=== PATIENT | male | born 1930 | race Caucasian/White ===

== ENCOUNTER 2017-02-28 13:06 | Emergency (ER) | payer MEDICARE ==
[~2017-02-28] VITALS: Ht 165.1 cm; Wt 77.1 kg
[2017-02-28] MEDS ORDERED: CLOP75TA2 PO (13:19)
[2017-02-28] MEDS ORDERED: ATOR1TAB18 PO (13:19)
[2017-02-28] MEDS ORDERED: OMEP40CA2 PO (13:19)
[2017-02-28] MEDS ORDERED: NITR2PA TD (13:19)
[2017-02-28] MEDS ORDERED: LEVE1INJ5 SQ (13:19)
[2017-02-28] MEDS ORDERED: AMLO10TA2 PO (13:19)
[2017-02-28] MEDS ORDERED: FURO40TA2 PO (13:19)
[2017-02-28] MEDS ORDERED: DULO1CAP2 PO (13:19)
[2017-02-28] MEDS ORDERED: NOVOINJ3 SQ (13:19)
[2017-02-28] MEDS ORDERED: RANE1000 PO (13:19)
[2017-02-28] MEDS ORDERED: VALS1TAB46 PO (13:19)
[2017-02-28 14:03] LABS: BASO % 0.6 % (0.0-1.0); EOS # 0.3 K/mm3 (0.0-0.50); EOS % 4.1 % (0.0-3.0); LARGE UNSTAINED CELL # 0.1 K/mm3 (0.0-0.4); LARGE UNSTAINED CELL % 1.6 % (0.0-4.0); LYMPH # 1.4 K/mm3 (1.5-4.5); LYMPH % 17.4 % (24.0-44.0); MEAN CORPUSCULAR HEMOGLOBIN 32.8 pg (27.0-33.0); MEAN CORPUSCULAR VOLUME 96.6 fl (80.0-96.0); MONO # 0.6 K/mm3 (0.0-0.8); MONO % 8.6 % (0.0-5.0); NEUTROPHILS # 4.8 K/mm3 (1.8-7.7); NEUTROPHILS % 67.6 % (36.0-66.0); PLATELET COUNT, AUTOMATED 229 k/mm3 (150-450); RED CELL DISTRIBUTION WIDTH 12.8 % (11.5-14.5); WHITE BLOOD COUNT 7.1 K/mm3 (4.0-10.0)
[2017-02-28 14:17] LABS: ANION GAP 8 MEQ/L (8-16); BLOOD UREA NITROGEN 35 MG/DL (7-18); CALCIUM LEVEL 8.1 MG/DL (8.8-10.2); CARBON DIOXIDE LEVEL 24 MEQ/L (21-32); CHLORIDE LEVEL 103 MEQ/L (98-107); CREATININE FOR GFR 2.19 MG/DL (0.70-1.30); GLOMERULAR FILTRATION RATE 30.5 (>35); GLUCOSE, FASTING 235 MG/DL (83-110); MAGNESIUM LEVEL 2.2 MG/DL (1.8-2.4); POTASSIUM SERUM 4.6 MEQ/L (3.5-5.1); SODIUM LEVEL 135 MEQ/L (136-145)
[2017-02-28 14:23] VITALS: BP 145/65
[2017-02-28 14:41] LABS: T UPTAKE 32 % (33-40); THYROXINE (T4) 6.5 UG/DL (4.5-12.0)
--- NOTE | 2017-02-28 14:43 | REP ---
RIGHT ELBOW: Four views of the right elbow are performed. There is no acute fracture or dislocation. Tiny olecranon spur is seen. I do not see a significant joint effusion. IMPRESSION: No evidence of acute fracture or dislocation. Signed by Nikita Arias MD 02/28/2017 04:48 P
--- NOTE | 2017-02-28 14:45 | REP ---
REASON: Chest pain. COMPARISON: 06/05/2016 There are mild fibrotic changes status quo. Note is again made of previous median sternotomy and cardiomegaly status quo. No acute patchy parenchymal opacities or pleural effusions have developed. There is no change in the osseous structures. IMPRESSION: Stable chronic changes as described above. Signed by Forest mSith DO 02/28/2017 02:58 P
--- NOTE | 2017-02-28 14:50 | ECGEPIP ---
Stationary ECG Study [facility] - ED Test Date: 2017-02-28 Pat Name: TORRES BURDEN Department: Room: - Gender: M Specialty Development Consultant: karina : 1930 Requested By: ELIESER HE Order Number: [id number] Reading MD: Jermaine Drake Measurements Intervals [place] Rate: 59 P: 22 IA: 257 QRS: -42 QRSD: 133 T: 43 QT: 476 QTc: 474 Interpretive Statements SINUS BRADYCARDIA WITH FIRST DEGREE AV BLOCK LEFT AXIS DEVIATION INTRAVENTRICULAR CONDUCTION DELAY MINIMAL VOLTAGE CRITERIA FOR LVH, CONSIDER NORMAL VARIANT NO PRIORS Electronically Signed On 02-28-2017 14:49:49 EDT by Jermaine Drake
== END 2017-02-28 15:26 | disposition home or self-care (01) ==
LOC: M ED 15:09
DX: R53.1 Weakness (principal); S50.311A Abrasion of right elbow, initial encounter; W01.0XXA Fall on same level from slipping, tripping and stumbling without subsequent striking against object, initial encounter; Y92.238 Other place in hospital as the place of occurrence of the external cause; Y93.89 Activity, other specified; Y99.8 Other external cause status; R94.31 Abnormal electrocardiogram [ECG] [EKG]; R29.6 Repeated falls; I25.10 Atherosclerotic heart disease of native coronary artery without angina pectoris; E11.9 Type 2 diabetes mellitus without complications; Z95.5 Presence of coronary angioplasty implant and graft; Z95.1 Presence of aortocoronary bypass graft; Z79.4 Long term (current) use of insulin; Z79.899 Other long term (current) drug therapy; Z79.02 Long term (current) use of antithrombotics/antiplatelets

== ENCOUNTER → 2017-03-09 | Outpatient (REF) | payer MEDICARE ==
[~2017-03-09] MED LIST: AMLO10TA2 PO; ATOR1TAB18 PO; CLOP75TA2 PO; DULO1CAP2 PO; FURO40TA2 PO; LEVE1INJ5 SQ; NITR2PA TD; NOVOINJ3 SQ; OMEP40CA2 PO; RANE1000 PO; VALS1TAB46 PO
== END ==
LOC: M SFHCPLAZ 11:12
PROVIDERS: ATTEND Internal Medicine
DX: E11.29 Type 2 diabetes mellitus with other diabetic kidney complication (principal)

== ENCOUNTER → 2017-03-10 | Outpatient (CLI) | payer MEDICARE | LOC: M LAB 08:57 | PROVIDERS: ATTEND Internal Medicine | DX: E11.29 Type 2 diabetes mellitus with other diabetic kidney complication (principal) ==

== ENCOUNTER → 2017-06-05 | Outpatient (REF) | payer MEDICARE ==
[~2017-06-05] MED LIST changes: -ATOR1TAB18 PO; +ATOR80TA59 PO; +BACI500O60 EX; +KEFL500C17 PO; +NITR0.4S14
[2017-06-05 11:25] LABS: MEAN CORPUSCULAR HEMOGLOBIN 32.2 pg (27.0-33.0); MEAN CORPUSCULAR HGB CONC 33.1 g/dl (32.0-36.5); MEAN CORPUSCULAR VOLUME 97.4 fl (80.0-96.0); RED CELL DISTRIBUTION WIDTH 13.3 % (11.5-14.5); WHITE BLOOD COUNT 7.5 K/mm3 (4.0-10.0)
[2017-06-05 11:42] LABS: ALBUMIN 3.5 GM/DL (3.2-5.2); ALBUMIN/GLOBULIN RATIO 0.97 (1.00-1.93); BILIRUBIN,TOTAL 0.5 MG/DL (0.2-1.0); CALCIUM LEVEL 8.8 MG/DL (8.8-10.2); CREATININE FOR GFR 2.45 MG/DL (0.70-1.30); GLOMERULAR FILTRATION RATE 26.8 (>35); MAGNESIUM LEVEL 2.4 MG/DL (1.8-2.4); POTASSIUM SERUM 4.1 MEQ/L (3.5-5.1); TOTAL PROTEIN 7.1 GM/DL (6.4-8.2)
== END ==
LOC: M SFHCPLAZ 09:25
PROVIDERS: ATTEND Internal Medicine
DX: I12.9 Hypertensive chronic kidney disease with stage 1 through stage 4 chronic kidney disease, or unspecified chronic kidney disease (principal); D63.1 Anemia in chronic kidney disease; E11.29 Type 2 diabetes mellitus with other diabetic kidney complication; E78.00 Pure hypercholesterolemia, unspecified; N18.3 Chronic kidney disease, stage 3 (moderate)

== ENCOUNTER → 2017-06-12 | Outpatient (REF) | payer MEDICARE ==
[2017-06-12 16:17] LABS: PERCENT SATURATION 24.1 % (19.7-50.0)
[2017-06-12 16:20] LABS: FOLATE 14.6 NG/ML
== END ==
LOC: M SFHCPLAZ 14:09
PROVIDERS: ATTEND Internal Medicine
DX: R94.6 Abnormal results of thyroid function studies (principal); R53.82 Chronic fatigue, unspecified; E11.29 Type 2 diabetes mellitus with other diabetic kidney complication; I12.9 Hypertensive chronic kidney disease with stage 1 through stage 4 chronic kidney disease, or unspecified chronic kidney disease; N18.3 Chronic kidney disease, stage 3 (moderate); Z79.82 Long term (current) use of aspirin; Z79.4 Long term (current) use of insulin; Z79.899 Other long term (current) drug therapy
CPT/HCPCS: 36415; 82607; 82728; 82746; 83550; 84443; G0463

== ENCOUNTER 2017-07-18 11:51 | Emergency (ER) | payer MEDICARE ==
[~2017-07-18] VITALS: Ht 165.1 cm; Wt 77.1 kg
[~2017-07-18 11:51] MED LIST changes: -BACI500O60 EX; -KEFL500C17 PO; -NITR0.4S14
[2017-07-18] MEDS ORDERED: NITR0.4S14 (12:02)
[2017-07-18] MEDS ORDERED: TETANUS/DIPHTHERIA TOX ADSORB ADULT 0.5ML SYR/VIAL (90714) IM ONE (12:30)
[2017-07-18 12:42] LABS: INR 0.87
[2017-07-18 13:26] LABS: BASO % 0.5 % (0.0-1.0); EOS # 0.3 K/mm3 (0.0-0.50); EOS % 4.2 % (0.0-3.0); LARGE UNSTAINED CELL # 0.2 K/mm3 (0.0-0.4); LARGE UNSTAINED CELL % 2.7 % (0.0-4.0); LYMPH # 1.1 K/mm3 (1.5-4.5); LYMPH % 16.3 % (24.0-44.0); MEAN CORPUSCULAR HEMOGLOBIN 34.4 pg (27.0-33.0); MEAN CORPUSCULAR HGB CONC 35.3 g/dl (32.0-36.5); MEAN CORPUSCULAR VOLUME 97.4 fl (80.0-96.0); MONO # 0.6 K/mm3 (0.0-0.8); MONO % 8.4 % (0.0-5.0); NEUTROPHILS # 4.6 K/mm3 (1.8-7.7); NEUTROPHILS % 67.7 % (36.0-66.0); PLATELET COUNT, AUTOMATED 250 k/mm3 (150-450); RED CELL DISTRIBUTION WIDTH 12.7 % (11.5-14.5); WHITE BLOOD COUNT 6.7 K/mm3 (4.0-10.0)
--- NOTE | 2017-07-18 13:26 | REP ---
Maxillofacial CT: Axial images are acquired helical scanning and a reformatted in sagittal and coronal projections. There is no nasal bone fracture. There is no orbital or sinus fracture. There is no mandible fracture. There is no mandible fracture. There are then multiple dental extractions. The paranasal sinuses are clear. The right mastoid air cells are clear. There is the inferior left mastoid air cells are poorly pneumatized. This is nonspecific and could be congenital variant or could be evidence for subacute or chronic mastoiditis change. There is evidence for bilateral high surgery. Impression: There is no facial bone fracture. There is bilateral ocular surgery. The inferior left mastoid air cells are incompletely pneumatized. This is nonspecific and could be a congenital variant or could be evidence of subacute or chronic mastoiditis. There are multiple dental extraction this. Signed by Nikita Grande MD 07/18/2017 01:07 P
--- NOTE | 2017-07-18 13:26 | REP ---
CT of the brain without IV contrast: There is no subdural or epidural hematoma. There is no other intracranial hemorrhage. There is no edema, mass effect or midline shift. The cortical stripe is unremarkable. The ventricles and sulci are enlarged compatible with diffuse volume loss. The visualized paranasal sinuses are unremarkable. The right mastoid air cells are unremarkable. There is non pneumatization of the inferior air cells in the left mastoid process. This is nonspecific and can be congenital variation or possibly from mastoiditis. There are no air-fluid levels. Impression: No subdural hematoma or other acute intracranial hemorrhage. There is diffuse volume loss. No mass effect or shift. Non pneumatization of the inferior air cells in the left mastoid process, congenital versus mastoiditis (old versus acute), there are no air-fluid levels. Signed by Nikita Grande MD 07/18/2017 12:53 P
[2017-07-18 14:21] LABS: ANION GAP 6 MEQ/L (8-16); AST/SGOT 17 U/L (15-37); BLOOD UREA NITROGEN 37 MG/DL (7-18); CALCIUM LEVEL 8.2 MG/DL (8.8-10.2); CARBON DIOXIDE LEVEL 24 MEQ/L (21-32); CHLORIDE LEVEL 103 MEQ/L (98-107); CREATININE FOR GFR 2.15 MG/DL (0.70-1.30); GLOMERULAR FILTRATION RATE 31.1 (>35); GLUCOSE, FASTING 232 MG/DL (83-110); POTASSIUM SERUM 4.2 MEQ/L (3.5-5.1); SODIUM LEVEL 133 MEQ/L (136-145)
[2017-07-18 14:22] LABS: ALBUMIN 3.6 GM/DL (3.2-5.2); ALBUMIN/GLOBULIN RATIO 0.88 (1.00-1.93); ALKALINE PHOSPHATASE 133 U/L (45-117); ALT/SGPT 23 U/L (12-78); BILIRUBIN,DIRECT 0.1 MG/DL (0.0-0.2); BILIRUBIN,TOTAL 0.5 MG/DL (0.2-1.0); TOTAL PROTEIN 7.7 GM/DL (6.4-8.2)
[2017-07-18] MEDS ORDERED: LIDOCAINE W/EPINEPHRINE 1% 20ML VIAL As Ordered ONE (15:36)
[2017-07-18] MEDS ORDERED: LIDOCAINE W/EPINEPHRINE 1% 20ML VIAL SC ONE (15:45)
[2017-07-18] MEDS ORDERED: CEPHALEXIN 500 MG CAP PO ONE (15:45)
[2017-07-18] MEDS ORDERED: BACITRACIN OINT 30GM TOP STA (16:59)
[2017-07-18] MEDS ORDERED: KEFL500C17 PO (17:04)
[2017-07-18] MEDS ORDERED: BACI500O60 EX (17:04)
[2017-07-18 17:09] VITALS: BP 147/58
--- NOTE | 2017-07-18 21:30 | CR ---
DATE OF CONSULTATION: 07/18/2017 REQUESTED BY : Dr. Twyla Mena CHIEF COMPLAINT: Nasal laceration. HISTORY OF PRESENT ILLNESS: This 86-year-old man tripped over the door threshold and hit his face at approximately 10 o'clock this morning. It resulted in laceration to the right upper nasal dorsum and left nasal tip area. Patient did not lose consciousness or sustain any other injury to the facial area. CT brain and CT head revealed no evidence of facial bone fracture. Due to the complex nature of the laceration, I have been consulted to assess the patient, and to provide repair of the laceration. PAST MEDICAL HISTORY: 1. Coronary artery disease. 2. Coronary artery bypass graft (CABG) 2001. 3. Cardiac stent placement 2014, 2006 and 2005. 4. Left knee replacement. 5. Right knee replacement. 6. Bilateral cataract extraction 2011. MEDICATIONS: - aspirin - Ranexa - Lasix - docusate sodium - Norvasc - Ativan - Cymbalta - NovoLog - Levemir - nitroglycerin - omeprazole - atorvastatin ALLERGIES: No known anaphylactic reactions to drugs. SOCIAL HISTORY: Nonsmoker. . REVIEW OF SYSTEMS: As above. Otherwise, noncontributory. PHYSICAL EXAMINATION: On examination, patient appears in no acute distress. VITAL SIGNS: Stable. Fresh blood and clots over the external nasal area. 1 cm laceration right upper nasal dorsum. Complex laceration of the left nasal tip with 3 mm mucosal involvement of the left nostril. The lower lateral cartilage intact. No exposed facial bone. Facial motion symmetrical and intact. No cervical lymphadenopathy. Trachea midline. CT sinus review: No facial bone fracture. IMPRESSION: This 86-year-old man sustained nasal lacerations times two due to a fall that occurred this morning. PLAN: Upon discussion with the patient, decision is made to have the nasal laceration repaired under local anesthetic control in the emergency department (ED). Arrangements have been made and we will have the nasal lacerations repaired in the ED today. CRISTIN
--- NOTE | 2017-07-19 07:15 | RO ---
DATE OF PROCEDURE: 07/18/2017 PREOPERATIVE DIAGNOSIS: Complex laceration left nasal tip and right upper nasal dorsum. POSTOPERATIVE DIAGNOSIS: Complex laceration left nasal tip and right upper nasal dorsum. PROCEDURE PERFORMED: 1. Repair of complex laceration of the left nasal tip, 3 cm 2. Repair of laceration of the right upper nasal dorsum, 1 cm. SURGEON: Maurice Campos MD VOCATIONAL NURSING INSTRUCTOR: ANESTHESIA: local CLINICAL PREAMBLE: This 86-year-old man tripped and fell early this morning resulting in a complex laceration to the external nose. He did not lose consciousness. CT of the brain and CT of facial sinuses reveal no evidence of intracranial pathology or facial fractures. Physical examination revealed 1 cm laceration over the right upper nasal dorsum and a complex 3 cm laceration involving the left nasal tip extending in the labial fold area. Upon discussion with the patient, he opt to have the laceration performed in the emergency department (ED). DESCRIPTION OF PROCEDURE: Patient was brought to the procedure room in the ED. He was prepped and draped in the usual fashion for the procedure. The edges of the left nasal tip laceration, measuring 3 cm, was infiltrated with 1% lidocaine with 1:100,000 epinephrine. The external nose skin laceration was carefully reapproximated along the left nasal tip area. There was no involvement of the lower lateral cartilage. The skin edges were then carefully reapproximated using a #5-0 Prolene suture. The right upper nasal dorsal laceration, which measured approximately 1 cm in size, was also reapproximated using #5-0 Prolene as well. The laceration sites were then covered with the bacitracin ointment. The patient tolerated the procedure well. No complication was encountered. At this time, patient will be accommodated for discharge from the ED with the provision of oral Keflex to be provided by the ED physician. He will followup with ENT office in 5-7 days for suture removal. He is to apply the bacitracin to the laceration sites as well as the left nostril as well. CRISTIN
--- NOTE | 2017-07-19 08:20 | ECGEPIP ---
Stationary ECG Study [facility] - ED Test Date: 2017-07-18 Pat Name: TORRES BURDEN Department: Room: - Gender: M Advertising Manager: kathleen : 1930 Requested By: ELIESER HE Order Number: [id number] Reading MD: Sunshine Robertson Measurements Intervals [place] Rate: 61 P: 29 ID: 244 QRS: -40 QRSD: 154 T: 68 QT: 479 QTc: 483 Interpretive Statements SINUS RHYTHM WITH FIRST DEGREE AV BLOCK MARKED LEFT AXIS DEVIATION LEFT BUNDLE BRANCH BLOCK SIMILAR 02/28/17 Electronically Signed On 07-19-2017 8:20:09 EDT by Sunshine Robertson
== END 2017-07-18 17:20 | disposition home or self-care (01) ==
LOC: EDBD 11:51 → M ED 11:51
DX: S01.21XA Laceration without foreign body of nose, initial encounter (principal); W01.198A Fall on same level from slipping, tripping and stumbling with subsequent striking against other object, initial encounter; Y92.019 Unspecified place in single-family (private) house as the place of occurrence of the external cause; Y93.01 Activity, walking, marching and hiking; Y99.8 Other external cause status; I25.10 Atherosclerotic heart disease of native coronary artery without angina pectoris; E11.9 Type 2 diabetes mellitus without complications; Z79.82 Long term (current) use of aspirin; Z79.899 Other long term (current) drug therapy; Z79.4 Long term (current) use of insulin; Z95.5 Presence of coronary angioplasty implant and graft; Z96.9 Presence of functional implant, unspecified

== ENCOUNTER → 2017-09-19 | Outpatient (REF) | payer MEDICARE ==
[~2017-09-19] MED LIST changes: +BACI500O60 EX; +KEFL500C17 PO; +NITR0.4S14
[2017-09-19 13:03] LABS: BASO % 0.1 % (0.0-1.0); EOS # 0.1 10^3/uL (0.0-0.50); EOS % 0.7 % (0.0-3.0); IMMATURE GRANULOCYTE % 0.5 % (0-0); LYMPH # 0.9 10^3/uL (1.5-4.5); LYMPH % 6.2 % (24.0-44.0); MEAN CORPUSCULAR HEMOGLOBIN 32.7 pg (27.0-33.0); MEAN CORPUSCULAR HGB CONC 33.4 g/dl (32.0-36.5); MEAN CORPUSCULAR VOLUME 97.6 fl (80.0-96.0); MONO # 1.2 10^3/uL (0.0-0.8); NEUTROPHILS # 12.7 10^3/uL (1.8-7.7); NEUTROPHILS % 84.5 % (36.0-66.0); PLATELET COUNT, AUTOMATED 252 10^3/uL (150-450); RED CELL DISTRIBUTION WIDTH 13.4 % (11.5-14.5); WHITE BLOOD COUNT 15.1 10^3/uL (4.0-10.0)
[2017-09-19 13:44] LABS: ALBUMIN 3.2 GM/DL (3.2-5.2); ALBUMIN/GLOBULIN RATIO 0.84 (1.00-1.93); BILIRUBIN,TOTAL 0.6 MG/DL (0.2-1.0); CALCIUM LEVEL 8.5 MG/DL (8.8-10.2); CREATININE FOR GFR 2.46 MG/DL (0.70-1.30); GLOMERULAR FILTRATION RATE 26.6 (>35); POTASSIUM SERUM 4.1 MEQ/L (3.5-5.1)
== END ==
LOC: M SFHCPLAZ 10:53
PROVIDERS: ATTEND Nurse Practitioner Family
DX: I25.810 Atherosclerosis of coronary artery bypass graft(s) without angina pectoris (principal); R05 Cough

== ENCOUNTER 2017-09-30 18:15 | Emergency (ER) | payer MEDICARE ==
[~2017-09-30] VITALS: Ht 172.7 cm; Wt 77.3 kg
[2017-09-30] MEDS ORDERED: NS 1,000 ML IV SCH (18:28)
[2017-09-30] MEDS ORDERED: ISOS30TA4 PO (18:53)
[2017-09-30] MEDS ORDERED: ECOT81TA5 PO (18:53)
[2017-09-30 19:41] LABS: ANION GAP 7 MEQ/L (8-16); BLOOD UREA NITROGEN 44 MG/DL (7-18); CALCIUM LEVEL 8.6 MG/DL (8.8-10.2); CARBON DIOXIDE LEVEL 27 MEQ/L (21-32); CHLORIDE LEVEL 101 MEQ/L (98-107); CREATININE FOR GFR 2.22 MG/DL (0.70-1.30); GLUCOSE, FASTING 287 MG/DL (83-110); SODIUM LEVEL 135 MEQ/L (136-145)
[2017-09-30 19:57] LABS: POTASSIUM SERUM 5.2 MEQ/L (3.5-5.1)
[2017-09-30 20:04] LABS: BASO % 0.5 % (0.0-1.0); EOS # 0.4 10^3/uL (0.0-0.50); EOS % 4.4 % (0.0-3.0); IMMATURE GRANULOCYTE % 0.3 % (0-0); LYMPH # 1.1 10^3/uL (1.5-4.5); LYMPH % 12.3 % (24.0-44.0); MEAN CORPUSCULAR HEMOGLOBIN 31.3 pg (27.0-33.0); MEAN CORPUSCULAR HGB CONC 33.2 g/dl (32.0-36.5); MEAN CORPUSCULAR VOLUME 94.3 fl (80.0-96.0); MONO # 0.7 10^3/uL (0.0-0.8); MONO % 8.2 % (0.0-5.0); NEUTROPHILS # 6.4 10^3/uL (1.8-7.7); NEUTROPHILS % 74.3 % (36.0-66.0); PLATELET COUNT, AUTOMATED 335 10^3/uL (150-450); RED CELL DISTRIBUTION WIDTH 13.2 % (11.5-14.5); WHITE BLOOD COUNT 8.6 10^3/uL (4.0-10.0)
[2017-09-30 20:27] LABS: INR 1.02
[2017-09-30] MEDS ORDERED: ISOSORBIDE MON. (IMDUR) 60 MG XR TAB PO ONE (20:45)
[2017-09-30 21:17] VITALS: BP 153/82
[2017-09-30 23:58] VITALS: BP 172/75
--- NOTE | 2017-10-01 06:26 | REP ---
PORTABLE CHEST, ONE VIEW: HISTORY: Chest pain. COMPARISON: 02/28/2017. An increase in interstitial markings is present in the lungs consistent with chronic interstitial change. The cardiac silhouette is enlarged. The pulmonary vasculature is normal in appearance Impression1. Chronic interstitial change.2. Cardiomegaly. Signed by Red Suazo MD 10/01/2017 08:25 A
--- NOTE | 2017-10-01 09:27 | ECGEPIP ---
Stationary ECG Study [facility] - ED Test Date: 2017-09-30 Pat Name: TORRES BURDEN Department: Room: - Gender: M Finance And Administration Manager: HAROON : 1930 Requested By: DIALLO VEGAS Order Number: [id number] Reading MD: Jermaine Drake Measurements Intervals [place] Rate: 66 P: 30 PA: 236 QRS: -40 QRSD: 145 T: 51 QT: 462 QTc: 486 Interpretive Statements SINUS RHYTHM WITH FIRST DEGREE AV BLOCK LEFT AXIS DEVIATION LEFT BUNDLE BRANCH BLOCK SIMILAR TO 07/18/17 Electronically Signed On 10-01-2017 9:27:05 EST by Jermaine Drake
--- NOTE | 2017-10-01 09:33 | ECGEPIP ---
Stationary ECG Study [facility] - ED Test Date: 2017-09-30 Pat Name: TORRES BURDEN Department: Room: - Gender: M Drainman: PiersonB: 1930 Requested By: DIALLO VEGAS Order Number: [id number] Reading MD: Jermaine Drake Measurements Intervals [place] Rate: 65 P: 22 SD: 251 QRS: -38 QRSD: 141 T: 62 QT: 455 QTc: 476 Interpretive Statements SINUS RHYTHM WITH FIRST DEGREE AV BLOCK LEFT AXIS DEVIATION LEFT BUNDLE BRANCH BLOCK SIMILAR TO PRIOR ON SAME DATE Electronically Signed On 10-01-2017 9:32:51 EST by Jermaine Drake
== END 2017-10-01 00:36 | disposition home or self-care (01) ==
LOC: M ED 18:15 → EDBD 18:15 → M ED 10-01 00:36
DX: I20.0 Unstable angina (principal); I10 Essential (primary) hypertension; E11.9 Type 2 diabetes mellitus without complications; E78.5 Hyperlipidemia, unspecified; Z79.4 Long term (current) use of insulin; Z79.899 Other long term (current) drug therapy; Z79.82 Long term (current) use of aspirin; Z95.1 Presence of aortocoronary bypass graft; Z98.61 Coronary angioplasty status; Z98.890 Other specified postprocedural states; Z82.49 Family history of ischemic heart disease and other diseases of the circulatory system

== ENCOUNTER → 2017-10-19 | Outpatient (CLI) | payer MEDICARE | LOC: M PAIN 14:30 | DX: G89.29 Other chronic pain (principal); M51.26 Other intervertebral disc displacement, lumbar region; E11.9 Type 2 diabetes mellitus without complications; I25.810 Atherosclerosis of coronary artery bypass graft(s) without angina pectoris; M19.90 Unspecified osteoarthritis, unspecified site; Z88.8 Allergy status to other drugs, medicaments and biological substances; Z79.82 Long term (current) use of aspirin; Z79.4 Long term (current) use of insulin; Z79.899 Other long term (current) drug therapy; Z91.81 History of falling; Z86.79 Personal history of other diseases of the circulatory system | CPT/HCPCS: G0463 ==

== ENCOUNTER 2017-11-03 14:08 | Inpatient (IN) | payer MEDICARE ==
[2017-11-03 15:22] LABS: BASO % 0.6 % (0.0-1.0); EOS # 0.4 10^3/uL (0.0-0.50); EOS % 5.1 % (0.0-3.0); HEMATOCRIT 33.3 % (42.0-52.0); IMMATURE GRANULOCYTE % 0.4 % (0-0); LYMPH # 1.2 10^3/uL (1.5-4.5); MEAN CORPUSCULAR HEMOGLOBIN 31.3 pg (27.0-33.0); MEAN CORPUSCULAR VOLUME 94.6 fl (80.0-96.0); MONO # 0.8 10^3/uL (0.0-0.8); NEUTROPHILS # 4.8 10^3/uL (1.8-7.7); NEUTROPHILS % 66.9 % (36.0-66.0); PLATELET COUNT, AUTOMATED 239 10^3/uL (150-450); RED BLOOD COUNT 3.52 10^6/uL (4.30-6.10); RED CELL DISTRIBUTION WIDTH 14.7 % (11.5-14.5); WHITE BLOOD COUNT 7.2 10^3/uL (4.0-10.0)
[2017-11-03 15:35] LABS: INR 0.97
[2017-11-03 15:50] LABS: ALBUMIN 3.5 GM/DL (3.2-5.2); ALBUMIN/GLOBULIN RATIO 0.88 (1.00-1.93); ALKALINE PHOSPHATASE 118 U/L (45-117); ALT/SGPT 23 U/L (12-78); ANION GAP 9 MEQ/L (8-16); AST/SGOT 25 U/L (7-37); BILIRUBIN,DIRECT 0.1 MG/DL (0.0-0.2); BILIRUBIN,TOTAL 0.5 MG/DL (0.2-1.0); BLOOD UREA NITROGEN 43 MG/DL (7-18); CARBON DIOXIDE LEVEL 23 MEQ/L (21-32); CHLORIDE LEVEL 104 MEQ/L (98-107); CPK CREATINE PHOSPHOKINASE 127 U/L (39-308); CREATININE FOR GFR 2.53 MG/DL (0.70-1.30); FREE T4 0.73 NG/DL (0.76-1.46); GLOMERULAR FILTRATION RATE 25.8 (>35); GLUCOSE, FASTING 213 MG/DL (83-110); POTASSIUM SERUM 5.1 MEQ/L (3.5-5.1); SODIUM LEVEL 136 MEQ/L (136-145); TOTAL PROTEIN 7.5 GM/DL (6.4-8.2); TROPONIN I < 0.02 NG/ML (< 0.10)
[2017-11-03 15:55] LABS: CK-MB VALUE MASS 2.3 NG/ML (0.0-3.6); MB/CK RELATIVE INDEX 1.81 (< OR =4); NT-PRO BNP 1807 PG/ML (<450)
[2017-11-03] MEDS ORDERED: GLUCOSE 4 GM CHEW TABLET PO (18:30)
[2017-11-03] MEDS ORDERED: GLUCAGON FOR INJ 1 MG VIAL (J1610) SC (18:30)
[2017-11-03] MEDS ORDERED: DEXTROSE 50% 50 ML SYRINGE IV (18:30)
[2017-11-03] MEDS: NS 1,000 ML IV (19:07)
[2017-11-03 19:43] LABS: CPK CREATINE PHOSPHOKINASE 97 U/L (39-308); TROPONIN I < 0.02 NG/ML (< 0.10)
[2017-11-03 19:44] LABS: CK-MB VALUE MASS 1.9 NG/ML (0.0-3.6); MB/CK RELATIVE INDEX 1.95 (< OR =4)
[2017-11-03 20:37] LABS: BEDSIDE GLUCOSE 252 MG/DL (83-110)
[2017-11-03] MEDS ORDERED: FERROUS SULFATE 325MG TAB PO (21:00)
[2017-11-03] MEDS ORDERED: SENOKOT S TAB PO (21:00)
[2017-11-03] MEDS: ATORVASTATIN 20 MG TAB PO (21:05)
[2017-11-03] MEDS: HEPARIN SOD (PORCINE) 5000 UNITS/ML VIAL SC (21:06)
[2017-11-03] MEDS: SENOKOT S TAB PO (21:06)
[2017-11-03] MEDS: HumaLOG INSULIN (NovoLOG) PER UNIT SC (21:06)
[2017-11-03] MEDS: METOPROLOL SUCC *XL* 25MG TAB (TopROL *XL*) PO (22:10)
[2017-11-03] MEDS: RANOLAZINE 500 MG ER TAB PO (22:11)
[2017-11-04 04:26] LABS: HEMATOCRIT 28.8 % (42.0-52.0); HEMOGLOBIN 9.7 g/dl (14.0-18.0); MEAN CORPUSCULAR HGB CONC 33.7 g/dl (32.0-36.5); PLATELET COUNT, AUTOMATED 227 10^3/uL (150-450); RED BLOOD COUNT 3.13 10^6/uL (4.30-6.10); RED CELL DISTRIBUTION WIDTH 14.5 % (11.5-14.5)
[2017-11-04 04:47] LABS: ALBUMIN/GLOBULIN RATIO 0.83 (1.00-1.93); ALKALINE PHOSPHATASE 85 U/L (45-117); ALT/SGPT 16 U/L (12-78); ANION GAP 9 MEQ/L (8-16); AST/SGOT 13 U/L (7-37); BILIRUBIN,TOTAL 0.4 MG/DL (0.2-1.0); BLOOD UREA NITROGEN 48 MG/DL (7-18); CALCIUM LEVEL 7.7 MG/DL (8.8-10.2); CARBON DIOXIDE LEVEL 23 MEQ/L (21-32); CHLORIDE LEVEL 105 MEQ/L (98-107); CPK CREATINE PHOSPHOKINASE 104 U/L (39-308); CREATININE FOR GFR 2.44 MG/DL (0.70-1.30); GLOMERULAR FILTRATION RATE 26.9 (>35); GLUCOSE, FASTING 97 MG/DL (83-110); SODIUM LEVEL 137 MEQ/L (136-145); TOTAL PROTEIN 6.6 GM/DL (6.4-8.2); TROPONIN I < 0.02 NG/ML (< 0.10)
[2017-11-04 04:48] LABS: CK-MB VALUE MASS 1.9 NG/ML (0.0-3.6); MB/CK RELATIVE INDEX 1.82 (< OR =4)
[2017-11-04] MEDS: LEVOTHYROXINE 25MCG TABLET (0.025MG) PO (05:57)
[2017-11-04] MEDS: HumaLOG INSULIN (NovoLOG) PER UNIT SC ×4 (07:10→21:14)
[2017-11-04] MEDS: BISACODYL 10 MG SUPP PR (09:00)
[2017-11-04] MEDS: LEVEMIR (INSULIN DETEMIR) 1 UNITS/0.01ML SC (09:28)
[2017-11-04] MEDS: SENOKOT S TAB PO ×2 (09:29→21:21)
[2017-11-04] MEDS: CLOPIDOGREL 75 MG TAB PO (09:29)
[2017-11-04] MEDS: RANOLAZINE 500 MG ER TAB PO ×2 (09:29→21:21)
[2017-11-04] MEDS: HEPARIN SOD (PORCINE) 5000 UNITS/ML VIAL SC ×2 (09:30→21:21)
[2017-11-04] MEDS: amLODIPine 10 MG TAB PO (09:30)
[2017-11-04] MEDS: DULoxetine 30 MG CAP (CYMBALTA) PO (09:30)
[2017-11-04] MEDS: OMEPRAZOLE 20 MG CAP PO (09:30)
[2017-11-04 10:54] LABS: CK-MB VALUE MASS 2.6 NG/ML (0.0-3.6); CPK CREATINE PHOSPHOKINASE 138 U/L (39-308); MB/CK RELATIVE INDEX 1.88 (< OR =4); TROPONIN I < 0.02 NG/ML (< 0.10)
[2017-11-04 12:14] LABS: BEDSIDE GLUCOSE 180 MG/DL (83-110)
[2017-11-04 19:00] LABS: BEDSIDE GLUCOSE 79 MG/DL (83-110)
[2017-11-04 21:01] LABS: BEDSIDE GLUCOSE 101 MG/DL (83-110)
[2017-11-04] MEDS: METOPROLOL SUCC *XL* 25MG TAB (TopROL *XL*) PO (21:14)
[2017-11-04] MEDS: ATORVASTATIN 20 MG TAB PO (21:21)
[2017-11-05] MEDS: LEVOTHYROXINE 25MCG TABLET (0.025MG) PO (05:56)
[2017-11-05 06:10] LABS: BEDSIDE GLUCOSE 106 MG/DL (83-110)
[2017-11-05 06:24] LABS: HEMATOCRIT 32.5 % (42.0-52.0); HEMOGLOBIN 10.7 g/dl (14.0-18.0); MEAN CORPUSCULAR HEMOGLOBIN 31.3 pg (27.0-33.0); MEAN CORPUSCULAR HGB CONC 32.9 g/dl (32.0-36.5); PLATELET COUNT, AUTOMATED 226 10^3/uL (150-450); RED BLOOD COUNT 3.42 10^6/uL (4.30-6.10); RED CELL DISTRIBUTION WIDTH 14.7 % (11.5-14.5); WHITE BLOOD COUNT 7.1 10^3/uL (4.0-10.0)
[2017-11-05 06:46] LABS: ALBUMIN/GLOBULIN RATIO 0.83 (1.00-1.93); ALKALINE PHOSPHATASE 97 U/L (45-117); ALT/SGPT 19 U/L (12-78); ANION GAP 9 MEQ/L (8-16); AST/SGOT 22 U/L (7-37); BILIRUBIN,TOTAL 0.4 MG/DL (0.2-1.0); BLOOD UREA NITROGEN 41 MG/DL (7-18); CALCIUM LEVEL 8.1 MG/DL (8.8-10.2); CARBON DIOXIDE LEVEL 19 MEQ/L (21-32); CHLORIDE LEVEL 107 MEQ/L (98-107); CREATININE FOR GFR 2.11 MG/DL (0.70-1.30); GLOMERULAR FILTRATION RATE 31.8 (>35); GLUCOSE, FASTING 100 MG/DL (83-110); POTASSIUM SERUM 4.4 MEQ/L (3.5-5.1); SODIUM LEVEL 135 MEQ/L (136-145); TOTAL PROTEIN 6.6 GM/DL (6.4-8.2)
[2017-11-05] MEDS: HumaLOG INSULIN (NovoLOG) PER UNIT SC (07:30)
[2017-11-05 08:35] LABS: FOLATE 15.9 NG/ML (>5.4); VITAMIN B12 LEVEL 478 PG/ML (247-911)
[2017-11-05] MEDS: HEPARIN SOD (PORCINE) 5000 UNITS/ML VIAL SC (09:00)
[2017-11-05] MEDS: LEVEMIR (INSULIN DETEMIR) 1 UNITS/0.01ML SC (09:00)
[2017-11-05] MEDS: BISACODYL 10 MG SUPP PR (09:00)
[2017-11-05] MEDS: FUROSEMIDE 20 MG/2 ML VIAL (J1940) IV (10:50)
[2017-11-05] MEDS: DULoxetine 30 MG CAP (CYMBALTA) PO (10:50)
[2017-11-05] MEDS: SENOKOT S TAB PO (10:51)
[2017-11-05] MEDS: amLODIPine 10 MG TAB PO (10:51)
[2017-11-05] MEDS: CLOPIDOGREL 75 MG TAB PO (10:51)
[2017-11-05] MEDS: RANOLAZINE 500 MG ER TAB PO (10:58)
[2017-11-05] MEDS: OMEPRAZOLE 20 MG CAP PO (10:58)
== END 2017-11-05 11:40 | disposition home or self-care (01) | DRG 644 ==
LOC: M MS5PR 11-04 16:54 → M ED 14:08 → M ED INP 19:16 → M PCU 20:02
DX: E03.9 Hypothyroidism, unspecified (principal); I13.0 Hypertensive heart and chronic kidney disease with heart failure and stage 1 through stage 4 chronic kidney disease, or unspecified chronic kidney disease; N18.4 Chronic kidney disease, stage 4 (severe); I50.32 Chronic diastolic (congestive) heart failure; I25.10 Atherosclerotic heart disease of native coronary artery without angina pectoris; E11.22 Type 2 diabetes mellitus with diabetic chronic kidney disease; M62.81 Muscle weakness (generalized); E78.5 Hyperlipidemia, unspecified; K59.00 Constipation, unspecified; F41.9 Anxiety disorder, unspecified; D63.8 Anemia in other chronic diseases classified elsewhere; K21.9 Gastro-esophageal reflux disease without esophagitis; I35.0 Nonrheumatic aortic (valve) stenosis; I27.20 Pulmonary hypertension, unspecified; R43.1 Parosmia; Z96.653 Presence of artificial knee joint, bilateral; Z88.8 Allergy status to other drugs, medicaments and biological substances; Z79.82 Long term (current) use of aspirin; Z79.4 Long term (current) use of insulin; Z79.899 Other long term (current) drug therapy; Z95.5 Presence of coronary angioplasty implant and graft

== ENCOUNTER → 2018-02-27 | Outpatient (REF) | payer MEDICARE ==
[2018-02-27 13:46] LABS: HEMATOCRIT 29.9 % (42.0-52.0); MEAN CORPUSCULAR HEMOGLOBIN 32.9 pg (27.0-33.0); MEAN CORPUSCULAR HGB CONC 33.4 g/dl (32.0-36.5); MEAN CORPUSCULAR VOLUME 98.4 fl (80.0-96.0); PLATELET COUNT, AUTOMATED 199 10^3/uL (150-450); RED BLOOD COUNT 3.04 10^6/uL (4.30-6.10); RED CELL DISTRIBUTION WIDTH 13.2 % (11.5-14.5); WHITE BLOOD COUNT 8.3 10^3/uL (4.0-10.0)
[2018-02-27 14:09] LABS: ALBUMIN 3.2 GM/DL (3.2-5.2); ALBUMIN/GLOBULIN RATIO 0.91 (1.00-1.93); ALKALINE PHOSPHATASE 107 U/L (45-117); ALT/SGPT 21 U/L (12-78); ANION GAP 9 MEQ/L (8-16); AST/SGOT 21 U/L (7-37); BILIRUBIN,TOTAL 0.7 MG/DL (0.2-1.0); BLOOD UREA NITROGEN 53 MG/DL (7-18); CALCIUM LEVEL 8.4 MG/DL (8.8-10.2); CARBON DIOXIDE LEVEL 21 MEQ/L (21-32); CHLORIDE LEVEL 103 MEQ/L (98-107); CREATININE FOR GFR 3.12 MG/DL (0.70-1.30); GLOMERULAR FILTRATION RATE 20.2 (>35); GLUCOSE, FASTING 138 MG/DL (70-100); POTASSIUM SERUM 4.7 MEQ/L (3.5-5.1); SODIUM LEVEL 133 MEQ/L (136-145); TOTAL PROTEIN 6.7 GM/DL (6.4-8.2)
== END ==
LOC: M SFHCPLAZ 11:09
DX: R53.83 Other fatigue (principal); I12.9 Hypertensive chronic kidney disease with stage 1 through stage 4 chronic kidney disease, or unspecified chronic kidney disease; N18.3 Chronic kidney disease, stage 3 (moderate)
CPT/HCPCS: 80053

== ENCOUNTER → 2018-03-06 | Outpatient (REF) | payer MEDICARE ==
[2018-03-06 12:01] LABS: HEMATOCRIT 31.4 % (42.0-52.0); HEMOGLOBIN 10.3 g/dl (13.5-17.5); MEAN CORPUSCULAR HEMOGLOBIN 32.5 pg (27.0-33.0); MEAN CORPUSCULAR HGB CONC 32.8 g/dl (32.0-36.5); MEAN CORPUSCULAR VOLUME 99.1 fl (80.0-96.0); PLATELET COUNT, AUTOMATED 322 10^3/uL (150-450); RED BLOOD COUNT 3.17 10^6/uL (4.30-6.10); RED CELL DISTRIBUTION WIDTH 13.2 % (11.5-14.5); WHITE BLOOD COUNT 8.5 10^3/uL (4.0-10.0)
[2018-03-06 12:11] LABS: PTH INTACT 78.2 PG/ML (18.5-88.0)
[2018-03-06 12:30] LABS: ALBUMIN 3.2 GM/DL (3.2-5.2); ALBUMIN/GLOBULIN RATIO 0.91 (1.00-1.93); ALKALINE PHOSPHATASE 84 U/L (45-117); ALT/SGPT 21 U/L (12-78); ANION GAP 7 MEQ/L (8-16); AST/SGOT 15 U/L (7-37); BILIRUBIN,TOTAL 0.4 MG/DL (0.2-1.0); BLOOD UREA NITROGEN 35 MG/DL (7-18); CALCIUM LEVEL 8.3 MG/DL (8.8-10.2); CARBON DIOXIDE LEVEL 25 MEQ/L (21-32); CHLORIDE LEVEL 105 MEQ/L (98-107); CREATININE FOR GFR 1.99 MG/DL (0.70-1.30); GLOMERULAR FILTRATION RATE 33.9 (>35); GLUCOSE, FASTING 204 MG/DL (70-100); MAGNESIUM LEVEL 2.4 MG/DL (1.8-2.4); POTASSIUM SERUM 4.9 MEQ/L (3.5-5.1); SODIUM LEVEL 137 MEQ/L (136-145); TOTAL PROTEIN 6.7 GM/DL (6.4-8.2)
[2018-03-06 12:47] LABS: CREATININE, URINE 61.2 MG/DL; MAU/CREAT RATIO 271.2 MCG/MG (0.0-30.0)
[2018-03-06 13:21] LABS: ESTIMATED AVERAGE GLUCOSE 146 MG/DL (60-110); HEMOGLOBIN A1c 6.7 %
== END ==
LOC: M SFHCPLAZ 08:58
DX: E11.29 Type 2 diabetes mellitus with other diabetic kidney complication (principal); I10 Essential (primary) hypertension; N18.3 Chronic kidney disease, stage 3 (moderate); D63.1 Anemia in chronic kidney disease
CPT/HCPCS: 83735

== ENCOUNTER 2018-04-04 14:24 | Emergency (ER) | payer MEDICARE ==
[2018-04-09 11:08] LABS: BEDSIDE GLUCOSE 56 MG/DL (83-110)
== END 2018-04-04 16:10 | disposition home or self-care (01) ==
LOC: M ED 14:24
DX: S80.211A Abrasion, right knee, initial encounter (principal); S80.212A Abrasion, left knee, initial encounter; S51.812A Laceration without foreign body of left forearm, initial encounter; W19.XXXA Unspecified fall, initial encounter; Y92.099 Unspecified place in other non-institutional residence as the place of occurrence of the external cause; Y93.89 Activity, other specified; Y99.9 Unspecified external cause status; E11.9 Type 2 diabetes mellitus without complications; E03.9 Hypothyroidism, unspecified; Z79.82 Long term (current) use of aspirin; Z79.4 Long term (current) use of insulin; Z79.899 Other long term (current) drug therapy; Z88.8 Allergy status to other drugs, medicaments and biological substances
CPT/HCPCS: 99284

== ENCOUNTER → 2018-05-30 | Outpatient (REF) | payer MEDICARE ==
[2018-05-30 12:24] LABS: HEMATOCRIT 34.2 % (42.0-52.0); HEMOGLOBIN 11.6 g/dl (13.5-17.5); MEAN CORPUSCULAR HEMOGLOBIN 32.9 pg (27.0-33.0); MEAN CORPUSCULAR HGB CONC 33.9 g/dl (32.0-36.5); MEAN CORPUSCULAR VOLUME 96.9 fl (80.0-96.0); PLATELET COUNT, AUTOMATED 222 10^3/uL (150-450); RED BLOOD COUNT 3.53 10^6/uL (4.30-6.10); RED CELL DISTRIBUTION WIDTH 12.8 % (11.5-14.5); WHITE BLOOD COUNT 7.7 10^3/uL (4.0-10.0)
[2018-05-30 13:09] LABS: ALBUMIN 3.6 GM/DL (3.2-5.2); ALKALINE PHOSPHATASE 92 U/L (45-117); ALT/SGPT 24 U/L (12-78); ANION GAP 10 MEQ/L (8-16); AST/SGOT 21 U/L (7-37); BILIRUBIN,TOTAL 0.5 MG/DL (0.2-1.0); BLOOD UREA NITROGEN 49 MG/DL (7-18); CALCIUM LEVEL 8.3 MG/DL (8.8-10.2); CARBON DIOXIDE LEVEL 23 MEQ/L (21-32); CHLORIDE LEVEL 106 MEQ/L (98-107); CHOLESTEROL LEVEL 121 MG/DL (<200); GLOMERULAR FILTRATION RATE 26.1 (>35); GLUCOSE, FASTING 61 MG/DL (70-100); HDL CHOLESTEROL 59 MG/DL (>40); LDL CHOLESTEROL 44.8 MG/DL (<100); NON-HDL-C 62 MG/DL; POTASSIUM SERUM 4.4 MEQ/L (3.5-5.1); SODIUM LEVEL 139 MEQ/L (136-145); TOTAL PROTEIN 7.2 GM/DL (6.4-8.2); TRIGLYCERIDES LEVEL 86 MG/DL (<150)
[2018-05-30 13:13] LABS: PTH INTACT 101.9 PG/ML (18.5-88.0)
[2018-05-30 13:23] LABS: MALB URINE SIEMENS 40.8 MG/L
[2018-05-30 13:29] LABS: ESTIMATED AVERAGE GLUCOSE 137 MG/DL (60-110); HEMOGLOBIN A1c 6.4 %
== END ==
LOC: M SFHCPLAZ 10:04
DX: E11.29 Type 2 diabetes mellitus with other diabetic kidney complication (principal); D63.1 Anemia in chronic kidney disease; E78.00 Pure hypercholesterolemia, unspecified; N18.3 Chronic kidney disease, stage 3 (moderate); E03.9 Hypothyroidism, unspecified
CPT/HCPCS: 84443

== ENCOUNTER → 2019-03-27 | Outpatient (CLI) | payer MEDICARE ==
[~2019-03-27] MED LIST changes: -AMLO10TA2 PO; +AMLO10TA5 PO; +DIOV80TA3 PO; +DOCU100C16 PO; +DULO30CA9 PO; +ECOT81TA5 PO; +IRON65TA PO; +ISOS30TA4 PO; +LEVE1INJ5 SC; -LEVE1INJ5 SQ; +LEVO25TA5 PO; +LEVO50TA5; +METO1TAB32 PO; -NITR0.4S14; +NITR0.4S14 SL; +NOVOINJ3 SC; -NOVOINJ3 SQ; -VALS1TAB46 PO; +VALS1TAB66 PO
[2019-03-27 13:49] LABS: MAGNESIUM LEVEL 2.3 MG/DL (1.8-2.4); PTH INTACT 161.1 PG/ML (18.5-88.0)
[2019-03-27 15:07] LABS: HEMOGLOBIN A1c 6.4 %
[2019-03-27 15:23] LABS: MAU/CREAT RATIO 518.4 MCG/MG (0.0-30.0)
== END ==
LOC: M WUC 08:42
PROVIDERS: ATTEND Internal Medicine
DX: E11.29 Type 2 diabetes mellitus with other diabetic kidney complication (principal); N18.3 Chronic kidney disease, stage 3 (moderate); I10 Essential (primary) hypertension

== ENCOUNTER → 2019-04-17 | Outpatient (REF) | payer MEDICARE ==
[2019-04-17 13:33] LABS: ALBUMIN 3.5 GM/DL (3.2-5.2); BILIRUBIN,DIRECT 0.2 MG/DL (0.0-0.2); BILIRUBIN,TOTAL 0.6 MG/DL (0.2-1.0); TOTAL PROTEIN 7.6 GM/DL (6.4-8.2)
[2019-04-24 08:06] LABS: ANCA-ATYPICAL <1:20 titer (Neg:<1:20); ANTI DS-DNA AB <1:10 titer (.); CYTOPLASMIC NEUTROP AB ANCA-C <1:20 titer (Neg:<1:20); PERINUCLEAR AB ANCA-P <1:20 titer (Neg:<1:20)
== END ==
LOC: M LAB REF 13:06
PROVIDERS: ATTEND Internal Medicine Nephrology
DX: E11.22 Type 2 diabetes mellitus with diabetic chronic kidney disease (principal); K74.69 Other cirrhosis of liver; R80.9 Proteinuria, unspecified

== ENCOUNTER → 2019-04-23 | Outpatient (CLI) | payer MEDICARE ==
--- NOTE | 2019-04-23 14:48 | REP ---
Clinical: Chronic renal disease and cirrhosis. Technique: Axial noncontrast images from the lung bases to the pubic symphysis with coronal and sagittal re-formations. Comparison: 04/30/2010. Findings: Lung bases demonstrate mild fibroatelectatic changes along with cardiomegaly and findings to suggest a mild chronic pulmonary vascular congestion. Cardiomegaly is noted with atherosclerotic disease to the aorta and coronary arteries identified. Liver, spleen, pancreas, bilateral adrenal glands and kidneys are essentially normal/stable. Splenic parenchymal calcifications suggest prior granulomas disease. Cholelithiasis noted without acute cholecystitis. The enteric system is without obstruction or acute inflammatory process. Diffuse colonic and sigmoid diverticulosis noted without acute diverticulitis. The pelvis demonstrates normal bladder and age appropriate prostate/seminal vesicles. Fat containing right inguinal hernia identified. No ascites. No free air. No adenopathy. Atherosclerotic changes to the aorta and vasculature noted without aneurysm. Musculoskeletal structures demonstrate degenerative changes without focal abnormality. Impression: 1. Cholelithiasis. 2. Diverticulosis. 3. Fat-containing right inguinal hernia. 4. Further chronic changes as noted above remaining stable. 5. No acute abdominopelvic pathology appreciated. No ascites, focal inflammatory stranding or adenopathy. Electronically Signed by Nabor Knox MD 04/23/2019 02:40 P
== END ==
LOC: M RAD 13:36
PROVIDERS: ATTEND Internal Medicine Nephrology
DX: K40.90 Unilateral inguinal hernia, without obstruction or gangrene, not specified as recurrent (principal); K80.20 Calculus of gallbladder without cholecystitis without obstruction; N18.4 Chronic kidney disease, stage 4 (severe); K74.69 Other cirrhosis of liver

== ENCOUNTER → 2019-07-01 | Outpatient (REF) | payer MEDICARE ==
[~2019-07-01] MED LIST changes: -DULO1CAP2 PO; +DULO1CAP5 PO
[2019-07-01 20:06] LABS: HEMOGLOBIN A1c 7.5 %
[2019-07-01 20:18] LABS: CHOLESTEROL RISK RATIO 2.867 (<5)
== END ==
LOC: M SFHCPLAZ 15:36
PROVIDERS: ATTEND Internal Medicine
DX: E11.29 Type 2 diabetes mellitus with other diabetic kidney complication (principal); E78.00 Pure hypercholesterolemia, unspecified
CPT/HCPCS: 36415; 80061; 83036; G0463